=== PATIENT | female | born 1940 | race Caucasian/White ===

== ENCOUNTER 2017-11-02 02:49 | Emergency (ER) | END 2017-11-02 03:48 | disposition home or self-care (01) ==

== ENCOUNTER 2017-11-05 18:52 | Inpatient (IN) | END 2017-11-11 16:20 | disposition home or self-care (01) | DRG 202 ==

== ENCOUNTER 2018-04-13 18:52 | Emergency (ER) | END 2018-04-13 23:52 | disposition home or self-care (01) ==